=== PATIENT | male | born 1985 | race Caucasian/White ===

== ENCOUNTER 2021-06-27 11:25 | Emergency (ER) | payer OTHER, SELFPAY ==
[2021-06-27 11:27] VITALS: BP 127/97; PULSE 76; RESP 16; TEMP 36.6; O2SAT 98
--- NOTE | 2021-06-27 11:36 | ED.EAR ---
HPI - Ear Problem General Chief complaint: Ear Stated complaint: ear problem Time Seen by Provider: 06/27/21 11:30 Source: patient Mode of arrival: ambulatory Limitations: no limitations History of Present Illness HPI Narrative: 35-year-old male presents today with complaints of right ear discomfort from his loud noise that started last night. Discomfort started about a week ago. Patient denies fevers, drainage, sinus issues, or allergies. Pain with palpation. Patient denies any foreign objects in the ears. Related Data Allergies Allergy/AdvReac Type Severity Reaction Status Date / Time No Known Allergies Allergy Verified 06/27/21 11:26 Review of Systems Review of Systems: CONSTITUTIONAL: Denies fever, chills, or sweats. EYES: Denies visual changes, redness, or discharge. ENT: Right ear noise and discomfort with palpation. Denies rhinorrhea, congestion, sore throat, or otalgia. CARDIOVASCULAR: Denies chest pain, palpitations, or edema. RESPIRATORY: Denies cough or dyspnea. GASTROINTESTINAL: Denies abdominal pain, nausea, vomiting, or diarrhea. GENITOURINARY: Denies dysuria or hematuria. SKIN: Denies rash or itching. MUSCULOSKELETAL: Denies back pain, joint pain, or myalgia. NEUROLOGIC: Denies headache, numbness, dizziness, or weakness. PSYCHIATRIC: Denies anxiety or depression. Exam Narrative: GENERAL: Well-appearing, well-nourished, and in no acute distress. HEAD: Normocephalic, atraumatic. EYES: PERRLA and EOMI. ENT: Cerumen impaction bilateral ears. Nares clear, no rhinorrhea or epistaxis. Mucous membranes moist. Oropharynx without tonsillar hypertrophy exudate or other lesions. Bilateral effusions with air-fluid noted to left ear. NECK: Supple. No adenopathy or masses. No carotid bruits or JVD CHEST: Clear to auscultation. No respiratory distress. No wheezes rales or rhonchi HEART: Regular rate and rhythm. No murmur heard. Normal peripheral pulses. ABDOMEN: Soft, nontender, nondistended, normal active bowel sounds. EXTREMITIES: Normal range of motion. No edema. SKIN: Warm, dry, no rash. NEURO: No focal deficits. Alert and oriented x3. PSYCH: Normal mood and affect. Course Course Emergency Course: Bilateral ears irrigated by RN. Cerumen impaction removed. Bilateral effusions noted. Vital Signs Vital signs: Vital Signs Temperature 36.6 C 06/27/21 11:27 Pulse Rate 76 06/27/21 11:27 Respiratory Rate 16 06/27/21 11:27 Blood Pressure 127/97 H 06/27/21 11:27 Pulse Oximetry 98 06/27/21 11:27 Temperature 36.6 C 06/27/21 11:27 Pulse Rate 76 06/27/21 11:27 Respiratory Rate 16 06/27/21 11:27 Blood Pressure 127/97 H 06/27/21 11:27 Pulse Oximetry 98 06/27/21 11:27 Medical Decision Making Differential Diagnosis Differential Diagnosis: Bilateral cerumen impaction, otitis media with effusion, acute otitis media Medical Records Medical records reviewed: Yes I reviewed the external patient's medical records. Vital Signs Vital Signs: Vital Signs Temperature 36.6 C 06/27/21 11:27 Pulse Rate 76 06/27/21 11:27 Respiratory Rate 16 06/27/21 11:27 Blood Pressure 127/97 H 06/27/21 11:27 Pulse Oximetry 98 06/27/21 11:27 Temperature 36.6 C 06/27/21 11:27 Pulse Rate 76 06/27/21 11:27 Respiratory Rate 16 06/27/21 11:27 Blood Pressure 127/97 H 06/27/21 11:27 Pulse Oximetry 98 06/27/21 11:27 Discharge Plan Discharge Clinical Impression: Otitis media with effusion Qualifiers: Laterality: bilateral Qualified Code(s): H65.93 - Unspecified nonsuppurative otitis media, bilateral Patient Disposition: Home, Self-Care Condition: Stable Instructions: Antibiotic Form Additional Instructions: Take medication as prescribed follow-up with primary in 3 days. Return for any new or worsening symptoms. Once symptoms resolve may stop medication. Prescriptions: New pseudoephedrine HCl [Nasal Decongestant (pseudoeph)] 120 mg tablet extended release
== END 2021-06-27 12:15 | disposition home or self-care (01) ==
PROVIDERS: Emergency Provider Nurse Practitioner Family
DX: H65.93 Unspecified nonsuppurative otitis media, bilateral (principal); H61.23 Impacted cerumen, bilateral
CPT/HCPCS: 69209; 99283